=== PATIENT | male | born 2000 | race Caucasian/White ===

== ENCOUNTER 2019-12-23 18:52 | Emergency (ER) | payer OTHER ==
[~2019-12-23] VITALS: Ht 170.2 cm; Wt 68.0 kg
[2019-12-23 19:05] VITALS: BP 119/67
--- NOTE | 2019-12-23 19:05 | NUR ---
ED Nurse Note: Pt ambulated into ED from home CO suicidal ideation d/t hearing voices in his head which told him to slit his wrists. pt states that he has been hearing voices in his head x 2 days and finally felt as though he could no longer remain in control of his thoughts or actions. VSS no ss of distress noted. Pt behavior is suspicious and paranoid, guarded. Pt aao x 4, steady gait. ERMD at bedside
--- NOTE | 2019-12-23 19:05 | NUR ---
ED Nurse Note: Sitter at bedside. safety precautions in place. pt belongings placed in locker # 3
--- NOTE | 2019-12-23 19:20 | NUR ---
ED Nurse Note: IV access obtained, blood drawn and sent to lab; ua sent to lab
--- NOTE | 2019-12-23 19:28 | NUR ---
ED Nurse Note: All medications administered, pt tolerated well. no ss of distress noted.
[2019-12-23 19:48] LABS: BASOPHILS % (AUTO) 0.8 % (0.0-2.0); EOSINOPHILS % (AUTO) 0.5 % (0.0-3.0); HEMATOCRIT 45.8 % (42.0-52.0); HEMOGLOBIN 15.4 G/DL (14.2-18.0); LYMPHOCYTES % (AUTO) 33.7 % (20.0-45.0); MEAN CORPUSCULAR VOLUME 94 FL (80-99); MONOCYTES % (AUTO) 4.2 % (1.0-10.0); NEUTROPHILS % (AUTO) 60.8 % (45.0-75.0); PLATELET COUNT 305 K/UL (150-450); RED BLOOD COUNT 4.89 M/UL (4.70-6.10); RED CELL DISTRIBUTION WIDTH 11.7 % (11.6-14.8); WHITE BLOOD COUNT 6.9 K/UL (4.8-10.8)
[2019-12-23 19:51] LABS: ANION GAP 14 mmol/L (5-15); BLOOD UREA NITROGEN 13 mg/dL (7-18); CALCIUM 9.1 MG/DL (8.5-10.1); CARBON DIOXIDE 25 MMOL/L (21-32); CHLORIDE 105 MMOL/L (98-107); CREATININE 0.9 MG/DL (0.55-1.30); POTASSIUM 3.7 MMOL/L (3.5-5.1); SODIUM 144 MMOL/L (136-145)
[2019-12-23 19:55] LABS: ALANINE AMINOTRANSFERASE 29 U/L (12-78); ALBUMIN 4.9 G/DL (3.4-5.0); ALBUMIN/GLOBULIN RATIO 1.5 (1.0-2.7); ALKALINE PHOSPHATASE 99 U/L (46-116); ASPARTATE AMINO TRANSFERASE 24 U/L (15-37); BILIRUBIN,TOTAL 0.4 MG/DL (0.2-1.0)
--- NOTE | 2019-12-23 20:05 | NUR ---
ED Nurse Note: Pt resting in bed, sitter at bedside. safety precautions in place.
--- NOTE | 2019-12-23 20:24 | Emergency Room Report ---
History of Present Illness General Chief Complaint: Behavioral Complaint Source: Patient (Vu Blackburn) Present Illness HPI 19-year-old male with history of bipolar disorder which reports that he used to take Seroquel in the past here complaining of 3 days of suicidal ideation and wanting to cut his wrist. Has not completed his plan. Denies any suicidal ideation in the past. Reports that he has some alcohol yesterday. Denies all other drug use. Denies homicidal ideations. Reports that he does not remember last time that he took his Seroquel. Denies fever and chills, cough and congestion, recent travel. COVID-19 risk:Contact w/high r: No COVID-19 risk:Travel to affect: No Has patient experienced duncan: No (Vu Blackburn) Allergies: Coded Allergies: No Known Allergies (Unverified , 12/23/19) Patient History Past Medical History: see triage record Past Surgical History: none Pertinent Family History: none Immunizations: UTD Reviewed Nursing Documentation: PMH: Agreed; PSxH: Agreed (Vu Blackburn) Nursing Documentation-PMH Past Medical History: No Stated History History Of Psychiatric Problem: Yes - bi-polar (Vu Blackburn) Review of Systems All Other Systems: negative except mentioned in HPI (Vu Blackburn) Physical Exam Vital Signs Date Time Temp Pulse Resp B/P (MAP) Pulse Ox O2 Delivery O2 Flow Rate FiO2 12/23/19 18:55 98.2 86 16 119/67 (84) 98 12/23/19 19:05 Room Air Sp02 EP Interpretation: reviewed, normal General Appearance: no apparent distress, alert, GCS 15, non-toxic Head: normocephalic, atraumatic Eyes: bilateral eye normal inspection, bilateral eye PERRL ENT: hearing grossly normal, normal pharynx, no angioedema, normal voice Neck: full range of motion, supple/symm/no masses Respiratory: chest non-tender, lungs clear, normal breath sounds, no rhonchi, no wheezing, speaking full sentences Cardiovascular #1: regular rate, rhythm, no edema, no murmur, normal capillary refill Gastrointestinal: non tender, soft Genitourinary: no CVA tenderness Musculoskeletal: back normal Neurologic: alert, oriented Psychiatric: normal inspection, judgement/insight normal Suicide Risk Assessment: Suicidal Ideation: Yes Had intent to initiate attempt: Yes Pt's plan for suicide attempt: Yes Has means to complete attempt: Yes Skin: no rash Lymphatic: no adenopathy (Vu Blackburn) Medical Decision Making PA Attestation All diagnoses and treatment plans were reviewed and discussed with my supervising physician Dr. Alvarado (Vu Blackburn) Diagnostic Impression: Primary Impression: Suicidal ideation ER Course 19-year-old male with history of bipolar disorder which reports that he used to take Seroquel in the past here complaining of 3 days of suicidal ideation and wanting to cut his wrist. Has not completed his plan. Denies any suicidal ideation in the past. Reports that he has some alcohol yesterday. Denies all other drug use. Denies homicidal ideations. Reports that he does not remember last time that he took his Seroquel. Denies fever and chills, cough and congestion, recent travel. Ddx considered but are not limited to: generalized anxiety disorder, panic attack, depression with psycotic featurs, bipolar disorder, drug overdose Vital signs: are WNL, pt. is afebrile H&PE are most consistent with: Suicidal ideation ORDERS: Psychiatric order set ED INTERVENTIONS: Seroquel Patient is medically cleared I signed out the patient to Dr. Olivares at 9pm (Vu Blackburn) Last Vital Signs Date Time Temp Pulse Resp B/P (MAP) Pulse Ox O2 Delivery O2 Flow Rate FiO2 12/23/19 19:05 98.2 86 16 119/67 98 12/23/19 19:05 Room Air (Vu Blackburn) Disposition: XFER TO PSYCH HOSP/UNIT Condition: Stable Physician Consult: [facility], Dr. Branch (Susan Olivares M.D.) Referrals: [facility] (PCP) Vu Blackburn Dec 23, 2019 20:24 Susan Olivares M.D. Dec 24, 2019 02:43
--- NOTE | 2019-12-23 21:05 | NUR ---
ED Nurse Note: Pt resting in bed, sitter at bedside. safety precautions in place.
[2019-12-23 21:20] VITALS: BP 115/62
--- NOTE | 2019-12-23 22:05 | NUR ---
ED Nurse Note: Pt resting in bed, sitter at bedside. safety precautions in place.
--- NOTE | 2019-12-23 23:05 | NUR ---
ED Nurse Note: pt sleeping in bed. sitter at bedside, safety precautions in place.
[2019-12-23 23:15] VITALS: BP 110/67
--- NOTE | 2019-12-24 00:05 | NUR ---
ED Nurse Note: pt sleeping in bed. VSS no ss of distress noted. sitter at bedside, safety precautions in place
[2019-12-24 00:35] VITALS: BP 103/62
[2019-12-24 00:48] LABS: APPEARANCE,URINE CLEAR; BILIRUBIN, URINE NEGATIVE (NEGATIVE); COLOR,URINE PALE YELLOW; GLUCOSE, URINE (UA) NEGATIVE (NEGATIVE); KETONES,URINE NEGATIVE (NEGATIVE); LEUKOCYTE ESTERASE ,URINE NEGATIVE (NEGATIVE); NITRITE,URINE NEGATIVE (NEGATIVE); PH,URINE 6 (4.5-8.0); PROTEIN,URINE NEGATIVE (NEGATIVE); UROBILINOGEN,URINE NORMAL MG/DL (0.0-1.0)
--- NOTE | 2019-12-24 01:05 | NUR ---
ED Nurse Note: Pt sleeping in bed, VSS no ss of distress noted. Sitter at bedside safety precautions in place.
[2019-12-24 02:05] VITALS: BP 105/65
--- NOTE | 2019-12-24 02:05 | NUR ---
ED Nurse Note: Pt sleeping in bed, vSS no ss of distress noted. Sitter at bedside safety precautions in place.
[2019-12-24 02:41] VITALS: BP 105/65
--- NOTE | 2019-12-24 02:41 | NUR ---
ER DISCHARGE NOTE: Patient is cleared to be discharged to [facility] via [facility] per ERMD, pt is aox4, on room air, with stable vital signs. pt was given dc instructions, pt was able to verbalize understanding, pt id band and iv site removed without complications. pt is able to ambulate with steady gait. pt took all belongings. Report given to Anuja, charge nurse at facility.
== END 2019-12-24 02:41 ==
LOC: EMR 19:33
DX: R45.851 Suicidal ideations (principal); F31.9 Bipolar disorder, unspecified
CPT/HCPCS: 36415; 80053; 80307; 81003; 85025; G0480; G0481; Z7502; 99285

== ENCOUNTER 2020-02-08 00:39 | Emergency (ER) | payer OTHER ==
[~2020-02-08] VITALS: Ht 170.2 cm; Wt 70.3 kg
--- NOTE | 2020-02-08 00:45 | NUR ---
ED Nurse Note: PT WALKED IN FROM HOME C/O HEARING VOICES X4 DAYS. STATES ANXIETY AND NOT TAKING HIS PRESCRIBED SEROQUEL FOR 3 MONTHS DUE TO BAD DREAMS IT HAS BEEN CAUSING. VSS, NAD, DENIES SI, AAOX4, AMBULATORY.
[2020-02-08 00:52] VITALS: BP 136/61
[2020-02-08] MEDS ORDERED: ZYPREXA2.5 MG ORAL (00:54)
--- NOTE | 2020-02-08 00:54 | Emergency Room Report ---
History of Present Illness General Chief Complaint: Behavioral Complaint Source: Patient Present Illness HPI This a 19-year-old male with a psychiatric history. He presents with chief complaint of feeling anxious and suicidal. He has no particular plan. He said that he occasionally hears voices. He was here before he was sent to [place]. He said that he was on Seroquel in the past but it caused him to have very scary vivid dreams. He said the psychiatrist put him back on Seroquel but a lower dose. He said it did not help at all. He stopped that. He has been drinking alcohol try to help with anxiety. He has no particular plan. He denies any homicidal thought. Denies any fever chills but denies any nausea or vomiting. Denies any drug use other than marijuana and alcohol. Allergies: Coded Allergies: No Known Allergies (Unverified , 12/23/19) Patient History Past Medical History: see triage record, old chart reviewed Past Surgical History: none Family History: none Social History: other Immunizations: other Reviewed Nursing Documentation: PMH: Agreed; PSxH: Agreed Nursing Documentation-PMH History Of Psychiatric Problem: Yes - bipolar, anxiety Review of Systems ENT: Denies: sore throat Cardiovascular: Denies: chest pain, palpitations Gastrointestinal/Abdominal: Denies: nausea, vomiting, diarrhea Musculoskeletal: Denies: back problems Skin: Denies: rash Neurological: Denies: GUSMAN, seizures All Other Systems: negative except mentioned in HPI Physical Exam Vital Signs Date Time Temp Pulse Resp B/P (MAP) Pulse Ox O2 Delivery O2 Flow Rate FiO2 02/08/20 00:40 98.2 88 20 136/61 (86) 95 Room Air Vitals normal Sp02 EP Interpretation: reviewed, normal General Appearance: alert/responsive, no apparent distress, non-toxic Head: normocephalic, atraumatic Eyes: PERRL, EOMI ENT: oropharynx normal Neck: supple/symm/no masses Respiratory: effort normal, no rhonchi, no wheezing Cardiovascular: no murmur, gallop, rub Gastrointestinal: non-tender, no mass, non-distended, no rebound/guarding, normal bowel sounds Musculoskeletal: gait & station normal Neurologic: oriented x3, sensory intact, motor strength/tone normal Skin: no rash, normal palpation Medical Decision Making Diagnostic Impression: Primary Impression: Behavioral disorder Additional Impression: Suicidal thoughts ER Course Patient presents with behavioral disorder with anxiety and suicidal thoughts. He has no particular plan. Better after dose of Ativan here. We will switch him from Seroquel to Zyprexa. I see no criteria for 5150 at this moment in time. Patient said that he felt better now. Will discharge home. Last Vital Signs Date Time Temp Pulse Resp B/P (MAP) Pulse Ox O2 Delivery O2 Flow Rate FiO2 02/08/20 00:40 98.2 88 20 136/61 (86) 95 Room Air Status: improved Disposition: HOME, SELF-CARE Condition: Stable Scripts Olanzapine* (ZYPREXA*) 2.5 Mg Tablet 2.5 MG ORAL DAILY, #30 TAB 0 Refills Prov: Xavi Burns MD 02/08/20 Patient Instructions: Self-Destructive Behavior Additional Instructions: Follow-up with mental health/your psychiatrist in 7 days. Return if symptoms worsen. Xavi Burns MD February 08, 2020 00:54
[2020-02-08 01:00] VITALS: BP 136/61
[2020-02-08] MEDS ORDERED: LORazepam 1mg tab ORAL ONE (01:00)
--- NOTE | 2020-02-08 01:00 | NUR ---
ER DISCHARGE NOTE: Patient is cleared to be discharged per ERMD, pt is aox4, on room air, with stable vital signs. pt was given dc and prescription instructions, pt was able to verbalize understanding, pt id band removed without complications. pt is able to ambulate with steady gait. pt took all belongings.
== END 2020-02-08 01:00 | disposition home or self-care (01) ==
LOC: EMR 00:58
DX: R45.851 Suicidal ideations (principal); F41.9 Anxiety disorder, unspecified; F31.9 Bipolar disorder, unspecified
CPT/HCPCS: 99282

== ENCOUNTER 2020-05-30 23:43 | Emergency (ER) | payer OTHER ==
[~2020-05-30] VITALS: Ht 170.2 cm; Wt 74.8 kg
[~2020-05-30 23:43] MED LIST: ZYPREXA2.5 MG ORAL
[2020-05-31] VITALS (9 sets, daily range): BP systolic 122–134; BP diastolic 64–78
[2020-05-31] MEDS ORDERED: SEROQUEL200 MG ORAL (00:01)
[2020-05-31] MEDS ORDERED: LORazepam 1mg tab ORAL ONE ×2 (00:45→18:00)
--- NOTE | 2020-05-31 01:04 | Emergency Room Report ---
History of Present Illness General Chief Complaint: Behavioral Complaint Source: Patient (Taurus Harris M.D.) Present Illness HPI 19-year-old male with history of bipolar disorder and depression on Lexapro and Seroquel here with suicidal ideation. Patient says that he lives alone and has knives and has a plan to kill himself by cutting his wrists. He has done so in the past. He was recently at a psychiatric facility about 6 months ago. Says he has been compliant with his medications but says "they are not working and I still feel like killing myself." No homicidal ideation. No hallucinations. Denies drug use. Admits to drinking "a few beers tonight." Has been admitted to [place] in the past. He was here in the emergency department a few months ago and was complaining of suicidal thoughts and anxiety but felt better after Ativan. (Taurus Harris M.D.) Allergies: Coded Allergies: No Known Allergies (Unverified , 12/23/19) COVID-19 Screening Contact w/high risk pt: No Recent Travel to affected area: No Experienced COVID-19 symptoms?: No COVID-19 Testing performed ENGINEERING DIRECTOR: No (Taurus Harris M.D.) Nursing Documentation-H Past Medical History: No History, Except For (Taurus Harris M.D.) Review of Systems All Other Systems: negative except mentioned in HPI (Taurus Harris M.D.) Physical Exam Vital Signs Date Time Temp Pulse Resp B/P (MAP) Pulse Ox O2 Delivery O2 Flow Rate FiO2 05/30/20 23:54 98.4 83 14 128/64 (85) 98 Room Air Sp02 EP Interpretation: reviewed, normal General Appearance: no apparent distress, alert, GCS 15, non-toxic Head: normocephalic, atraumatic Eyes: bilateral eye normal inspection, bilateral eye PERRL ENT: hearing grossly normal, normal pharynx, no angioedema, normal voice Neck: full range of motion, supple/symm/no masses Respiratory: chest non-tender, lungs clear, normal breath sounds, speaking full sentences Cardiovascular #1: regular rate, rhythm, no edema Cardiovascular #2: 2+ carotid (R), 2+ carotid (L), 2+ radial (R), 2+ radial (L) , 2+ dorsalis pedis (R), 2+ dorsalis pedis (L) Gastrointestinal: normal bowel sounds, non tender, soft, non-distended, no guarding, no rebound Rectal: deferred Genitourinary: normal inspection, no CVA tenderness Musculoskeletal: back normal, normal range of motion, calf tenderness, gait/ station normal, non-tender Neurologic: alert, motor strength/tone normal, oriented x3, sensory intact, responsive, speech normal Psychiatric: judgement/insight normal, memory normal, mood/affect normal, no suicidal/homicidal ideation Lymphatic: no adenopathy (Taurus Harris M.D.) Medical Decision Making Diagnostic Impression: Primary Impression: Suicidal ideation ER Course 19 yo M here with suicidal ideation. The patient was extremely anxious on arrival and complaining of suicidal ideation with a plan to cut his wrists with knives that he has in his home. He was given ativan 2mg PO and said he felt less anxious but was still complaining of suicidal thoughts. UDS showed THC and was otherwise negative. He was medically cleared. Awaiting placement. Signed out to oncoming physician. Laboratory Tests Test 05/31/20 01:18 White Blood Count 8.0 K/UL (4.8-10.8) Red Blood Count 4.61 M/UL (4.70-6.10) L Hemoglobin 14.9 G/DL (14.2-18.0) Hematocrit 41.6 % (42.0-52.0) L Mean Corpuscular Volume 90 FL (80-99) Mean Corpuscular Hemoglobin 32.3 PG (27.0-31.0) H Mean Corpuscular Hemoglobin Concent 35.9 G/DL (32.0-36.0) Red Cell Distribution Width 10.8 % (11.6-14.8) L Platelet Count 273 K/UL (150-450) Mean Platelet Volume 7.1 FL (6.5-10.1) Neutrophils (%) (Auto) 57.4 % (45.0-75.0) Lymphocytes (%) (Auto) 32.4 % (20.0-45.0) Monocytes (%) (Auto) 7.4 % (1.0-10.0) Eosinophils (%) (Auto) 1.1 % (0.0-3.0) Basophils (%) (Auto) 1.7 % (0.0-2.0) Urine Color Pale yellow Urine Appearance Clear Urine pH 5 (4.5-8.0) Urine Specific [place] 1.015 (1.005-1.035) Urine Protein Negative (NEGATIVE) Urine Glucose (UA) Negative (NEGATIVE) Urine Ketones Negative (NEGATIVE) Urine Blood Negative (NEGATIVE) Urine Nitrite Negative (NEGATIVE) Urine Bilirubin Negative (NEGATIVE) Urine Urobilinogen Normal MG/DL (0.0-1.0) Urine Leukocyte Esterase Negative (NEGATIVE) Sodium Level 139 MMOL/L (136-145) Potassium Level 3.9 MMOL/L (3.5-5.1) Chloride Level 102 MMOL/L (98-107) Carbon Dioxide Level 24 MMOL/L (21-32) Anion Gap 13 mmol/L (5-15) Blood Urea Nitrogen 19 mg/dL (7-18) H Creatinine 1.1 MG/DL (0.55-1.30) Estimated Glomerular Filtration Rate > 60 mL/min (>60) Glucose Level 92 MG/DL (74-106) Calcium Level 9.6 MG/DL (8.5-10.1) Total Bilirubin 0.3 MG/DL (0.2-1.0) Aspartate Amino Transferase (AST) 21 U/L (15-37) Alanine Aminotransferase (ALT) 20 U/L (12-78) Alkaline Phosphatase 93 U/L (46-116) Total Protein 7.9 G/DL (6.4-8.2) Albumin 4.6 G/DL (3.4-5.0) Globulin 3.3 g/dL Albumin/Globulin Ratio 1.4 (1.0-2.7) Salicylates Level 7.6 ug/mL (2.8-20) Urine Opiates Screen Negative (NEGATIVE) Acetaminophen Level < 2 MCG/ML (10-30) L Urine Barbiturates Screen Negative (NEGATIVE) Phencyclidine (PCP) Screen Negative (NEGATIVE) Urine Amphetamines Screen Negative (NEGATIVE) Urine Benzodiazepines Screen Negative (NEGATIVE) Urine Cocaine Screen Negative (NEGATIVE) Urine Marijuana (THC) Screen Positive (NEGATIVE) H Serum Alcohol 69 mg/dL Microbiology Date/Time Source Procedure Growth Status 05/31/20 01:18 Nasopharynx SARS-CoV-2 RdRp Gene Assay - Final Complete (Taurus Harris M.D.) ER Course Medically clear for psychiatric evaluation. Patient resting throughout my shift. Stable for transfer. Laboratory Tests Test 05/31/20 01:18 White Blood Count 8.0 K/UL (4.8-10.8) Red Blood Count 4.61 M/UL (4.70-6.10) L Hemoglobin 14.9 G/DL (14.2-18.0) Hematocrit 41.6 % (42.0-52.0) L Mean Corpuscular Volume 90 FL (80-99) Mean Corpuscular Hemoglobin 32.3 PG (27.0-31.0) H Mean Corpuscular Hemoglobin Concent 35.9 G/DL (32.0-36.0) Red Cell Distribution Width 10.8 % (11.6-14.8) L Platelet Count 273 K/UL (150-450) Mean Platelet Volume 7.1 FL (6.5-10.1) Neutrophils (%) (Auto) 57.4 % (45.0-75.0) Lymphocytes (%) (Auto) 32.4 % (20.0-45.0) Monocytes (%) (Auto) 7.4 % (1.0-10.0) Eosinophils (%) (Auto) 1.1 % (0.0-3.0) Basophils (%) (Auto) 1.7 % (0.0-2.0) Urine Color Pale yellow Urine Appearance Clear Urine pH 5 (4.5-8.0) Urine Specific [place] 1.015 (1.005-1.035) Urine Protein Negative (NEGATIVE) Urine Glucose (UA) Negative (NEGATIVE) Urine Ketones Negative (NEGATIVE) Urine Blood Negative (NEGATIVE) Urine Nitrite Negative (NEGATIVE) Urine Bilirubin Negative (NEGATIVE) Urine Urobilinogen Normal MG/DL (0.0-1.0) Urine Leukocyte Esterase Negative (NEGATIVE) Sodium Level 139 MMOL/L (136-145) Potassium Level 3.9 MMOL/L (3.5-5.1) Chloride Level 102 MMOL/L (98-107) Carbon Dioxide Level 24 MMOL/L (21-32) Anion Gap 13 mmol/L (5-15) Blood Urea Nitrogen 19 mg/dL (7-18) H Creatinine 1.1 MG/DL (0.55-1.30) Estimated Glomerular Filtration Rate > 60 mL/min (>60) Glucose Level 92 MG/DL (74-106) Calcium Level 9.6 MG/DL (8.5-10.1) Total Bilirubin 0.3 MG/DL (0.2-1.0) Aspartate Amino Transferase (AST) 21 U/L (15-37) Alanine Aminotransferase (ALT) 20 U/L (12-78) Alkaline Phosphatase 93 U/L (46-116) Total Protein 7.9 G/DL (6.4-8.2) Albumin 4.6 G/DL (3.4-5.0) Globulin 3.3 g/dL Albumin/Globulin Ratio 1.4 (1.0-2.7) Salicylates Level 7.6 ug/mL (2.8-20) Urine Opiates Screen Negative (NEGATIVE) Acetaminophen Level < 2 MCG/ML (10-30) L Urine Barbiturates Screen Negative (NEGATIVE) Phencyclidine (PCP) Screen Negative (NEGATIVE) Urine Amphetamines Screen Negative (NEGATIVE) Urine Benzodiazepines Screen Negative (NEGATIVE) Urine Cocaine Screen Negative (NEGATIVE) Urine Marijuana (THC) Screen Positive (NEGATIVE) H Serum Alcohol 69 mg/dL Microbiology Date/Time Source Procedure Growth Status 05/31/20 01:18 Nasopharynx SARS-CoV-2 RdRp Gene Assay - Final Complete (Drake Alvarado MD) ER Course Labs reviewd. UDS + Marijuana. COVID negative. All other labs WNL. Pt is medically cleared. After serial neurologic exams in the emergency department, the patient remains clinically sober. They have no focal neurologic deficits. The patients presentation seems to be consistent with suicidal ideation, without any complications such as suicide attempt or overdose. The patient appears to be stable for transfer to a psychiatric facility for further psychiatric evaluation and care, without any obvious medical etiology for their symptoms. Patient was accepted to [facility]. 1700: According to nurse, [place] is now stating that they do not have the capacity to accept patient due to an emergency on their end. Patient continues to be medically clear. Ativan 2mg PO given for agitation . 0: Patient now up and out of bed agitated. Gave haldol, benadryl, ativan for sedation. 0: On re-evaluation patient is now calm and cooperative stating "Im sorry I was like that Ill cooperate now. When is my transfer coming?" Critical Care Statement Organ systems at risk include: psych, circulatory Critical care performed for 45 minutes. Time is exclusive of separately billable procedures. Time includes: direct patient care, continuous monitoring and multiple patient reassessment, coordination of patient care, review of patient's medical records , medical consultation, family consultation regarding treatment decisions and documentation of patient care. (Steph Cervantes D.O.) Last Vital Signs Date Time Temp Pulse Resp B/P (MAP) Pulse Ox O2 Delivery O2 Flow Rate FiO2 05/31/20 00:47 83 14 128/64 98 05/30/20 23:54 98.4 Room Air (Taurus Harris M.D.) Last Vital Signs Date Time Temp Pulse Resp B/P (MAP) Pulse Ox O2 Delivery O2 Flow Rate FiO2 05/31/20 15:44 98.4 76 18 122/68 100 Room Air Status: improved (Drake Alvarado MD) Disposition: PSYCH HOSP/UNIT - [facility] Condition: Stable Referrals: [facility] (PCP) Taurus Harris M.D. May 31, 2020 01:04 Drake Alvarado MD May 31, 2020 07:52 Steph Cervantes D.O. May 31, 2020 15:18
--- NOTE | 2020-05-31 01:25 | NUR ---
Nurse Note: Pt walked in c/o self harming thoughts for few days. Pt stated personal stressors are causing him to feel overwhelmed, depressed and have the urge to cut his wrists. Pt admitted to drinking ETOH and smoking THC for emotional support. Pt is showing regressing symptoms such as bed wetting and taking in a child like tone. Pt hx depression, bipolar. RT hand 22 gauge IV estbalished, blood drawn and sent to lab. Urine collected and sent to lab. All safety measures met; will continue to montior. Addendum: 05/31/20 at 0228 by [email or web address] Nurse Note: Pt stated he is complient with medication but "it does not help me anymore and I think I need stronger doses".
[2020-05-31 01:53] LABS: BASOPHILS % (AUTO) 1.7 % (0.0-2.0); EOSINOPHILS % (AUTO) 1.1 % (0.0-3.0); HEMATOCRIT 41.6 % (42.0-52.0); HEMOGLOBIN 14.9 G/DL (14.2-18.0); LYMPHOCYTES % (AUTO) 32.4 % (20.0-45.0); MEAN CORPUSCULAR VOLUME 90 FL (80-99); MONOCYTES % (AUTO) 7.4 % (1.0-10.0); NEUTROPHILS % (AUTO) 57.4 % (45.0-75.0); PLATELET COUNT 273 K/UL (150-450); RED BLOOD COUNT 4.61 M/UL (4.70-6.10); RED CELL DISTRIBUTION WIDTH 10.8 % (11.6-14.8)
[2020-05-31 01:56] LABS: ANION GAP 13 mmol/L (5-15); BLOOD UREA NITROGEN 19 mg/dL (7-18); CALCIUM 9.6 MG/DL (8.5-10.1); CARBON DIOXIDE 24 MMOL/L (21-32); CHLORIDE 102 MMOL/L (98-107); CREATININE 1.1 MG/DL (0.55-1.30); POTASSIUM 3.9 MMOL/L (3.5-5.1); SODIUM 139 MMOL/L (136-145)
--- NOTE | 2020-05-31 02:00 | NUR ---
Nurse Note: Rapid nasophryngeal covid swab collected and sent to lab. Belongings taken to locker 3. Pt appears calm. All safety measures met; will continue to montior.
[2020-05-31 02:02] LABS: ALANINE AMINOTRANSFERASE 20 U/L (12-78); ALBUMIN 4.6 G/DL (3.4-5.0); ALBUMIN/GLOBULIN RATIO 1.4 (1.0-2.7); ALKALINE PHOSPHATASE 93 U/L (46-116); ASPARTATE AMINO TRANSFERASE 21 U/L (15-37); BILIRUBIN,TOTAL 0.3 MG/DL (0.2-1.0)
--- NOTE | 2020-05-31 04:03 | NUR ---
Nurse Note: Pt asleep, no signs of acute distress. Pt remains comfortable; denies pain, denies self harm at this time. All safety measures met; will continue to montior.
[2020-05-31 06:05] LABS: APPEARANCE,URINE CLEAR; BILIRUBIN, URINE NEGATIVE (NEGATIVE); COLOR,URINE PALE YELLOW; GLUCOSE, URINE (UA) NEGATIVE (NEGATIVE); KETONES,URINE NEGATIVE (NEGATIVE); LEUKOCYTE ESTERASE ,URINE NEGATIVE (NEGATIVE); NITRITE,URINE NEGATIVE (NEGATIVE); PH,URINE 5 (4.5-8.0); PROTEIN,URINE NEGATIVE (NEGATIVE); UROBILINOGEN,URINE NORMAL MG/DL (0.0-1.0)
--- NOTE | 2020-05-31 06:30 | NUR ---
Nurse Note: Pt cleaned and new bed linens provided, breakfast meal ordered. Pt is medically cleared per ERMD. All safety measures met; will continue to montior.
--- NOTE | 2020-05-31 07:15 | NUR ---
Nurse Note: Report given to SHILA Dominguez for continutiy of care. Pt pending placement.
--- NOTE | 2020-05-31 07:34 | NUR ---
ED Nurse Note: Received report from SIHLA Dominguez for continuity of care. Pt on bed, awake and quiet. Safety measures in placed.
--- NOTE | 2020-05-31 08:28 | NUR ---
ED Nurse Note: Pt repetitively verbalized, "I want to hurt myself, I want to hurt myself." Safety measures in placed, sitter at bedside.
--- NOTE | 2020-05-31 12:00 | NUR ---
ED Nurse Note: Pt on bed, sleeping, no acute distress noted.
--- NOTE | 2020-05-31 15:43 | NUR ---
ED Nurse Note: Pt requested for his IV access to be out, RN removed IV site without any complications.
--- NOTE | 2020-05-31 16:10 | NUR ---
ED Nurse Note: called [facility] for report, spoke with Charles. Per Charles, their facility cannot have new patients right now; notified charge nurse.
--- NOTE | 2020-05-31 19:21 | NUR ---
ED Nurse Note: hand off given to Taylor FUCHS.
--- NOTE | 2020-05-31 20:12 | NUR ---
Nurse Note: Pt in bed; resting, calm. Pt moaning, controlled with attention. Pt redirectable; no signs of DTS and DTO at this time. RN close to pt room. All safety measures met; will continue to montior.
--- NOTE | 2020-05-31 21:12 | NUR ---
Nurse Note: Report given to Mac at [facility] for continuity of care. Pt VSS, no signs of distress; all safety measures met.
[2020-05-31] MEDS ORDERED: ZyPREXA Zydis 10mg tab ORAL ONE (22:30)
[2020-05-31] MEDS ORDERED: Haloperidol 5mg/ml Inj ONE (22:42)
[2020-05-31] MEDS ORDERED: Haloperidol Decanoate (Long Acting) 50mg Inj IM ONE ×2 (22:45)
[2020-05-31] MEDS ORDERED: DiphenhydrAMINE 50mg/ml Inj IM ONE (22:45)
[2020-05-31] MEDS ORDERED: LORazepam Inj 2mg/ml 1ml IM ONE (22:45)
--- NOTE | 2020-05-31 22:45 | NUR ---
Nurse Note: Pt acting out; wandering halls and verbally agresstive. Pt was repeatly reminded to stay in room; pt non complient. Pt yelling; MD aware and was given oral zyprexa. Pt spit medication out and started hitting the medical equiment and throwing stuff around the room. ERMD made aware and IM medication ordered. Order clarifed with MD about haldol decanonate 50mg inj; per ERMD, incorrect order and was given verbal order for haldol 5mg IM once. Pt placed on portable cardiac montior.
--- NOTE | 2020-05-31 22:45 | NUR ---
Note undone in EDM - 05/31/20 at 2352 by [email or web address] N 50mg injurse Note: Pt acting out; wandering halls and verbally agresstive. Pt was repeatly reminded to stay in room; pt non complient. Pt yelling; aware and was given oral zyprexa. Pt spit medication out and started hitting the medical equiment and throwing stuff around the room. ADE made aware and IM medication ordered. Order clarifed with about haldol decanonate; per ADE,
--- NOTE | 2020-05-31 23:54 | NUR ---
Nurse Note: Pt appears calm, no signs of acute aggitation. Pt chest rise and fall noted. All safety measures met; will continue to montior.
--- NOTE | 2020-06-01 00:35 | NUR ---
Nurse Note: Spoke with Mac from [facility], updated on pt condition. Mac is aware of most recent agitation episode. Mac aware of delayed transportation. Pt calm, asleep, VSS. All safety measures met; will continue to montior.
--- NOTE | 2020-06-01 01:10 | NUR ---
Nurse Note: Report given to [facility]; pt ready for transport. VSS. Belongings given to [facility].
[2020-06-01 01:11] VITALS: BP 101/70
== END 2020-06-01 01:10 ==
LOC: EMR 05-31 00:42
DX: R45.851 Suicidal ideations (principal); F31.9 Bipolar disorder, unspecified; F32.9 Major depressive disorder, single episode, unspecified; Z79.899 Other long term (current) drug therapy
CPT/HCPCS: 36415; 80053; 80307; 81003; 85025; 96372; G0480; G0481; J1200; J1630; J1631; U0002; Z7502; 99284

== ENCOUNTER 2020-09-09 15:32 | Emergency (ER) | payer OTHER ==
[~2020-09-09] VITALS: Ht 170.2 cm; Wt 72.6 kg
[~2020-09-09 15:32] MED LIST changes: +SEROQUEL200 MG ORAL
[2020-09-09 15:49] VITALS: BP 129/74
--- NOTE | 2020-09-09 17:46 | Emergency Room Report ---
History of Present Illness General Chief Complaint: Behavioral Complaint Source: Patient Present Illness HPI 19-year-old male with history of bipolar depressive/anxiety type presents to the emergency department complaining of increased depression and thoughts of "cutting". Patient reports turmoil with his family at home. Patient states he is been a part of the [employer] program. Patient is reporting difficulty with contacting his psychiatric doctor. 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 He states he has been taking Seroquel for almost 6 months and reports no relief of his symptoms. Patient reports he only feels sedated and increased appetite. Patient reports that he attempted to hurt himself in the past by cutting his legs. He denies HI. He denies any drug use. Pt. reports 2.5mg Zyprexa daily. He states he was better on higher dose in the past. Pt. also reports having been on abilify in his adolescence. Patient does report cigarette smoking. He denies cough, fevers or chills. No other aggravating or relieving factors at this time. He reports he has had several voluntary psychiatric hospitalizations in the past. He denies pain at this time. 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 COVID-19 Screening: Negative COVID-19 COVID-19 Testing Source: few months ago @ [facility] Patient History Past Medical History: see triage record, psych hx - bipolar Past Surgical History: none Pertinent Family History: none Social History: Reports: smoking Reviewed Nursing Documentation: PMH: Agreed; PSxH: Agreed Nursing Documentation-PMH Past Medical History: No History, Except For Review of Systems All Other Systems: negative except mentioned in HPI Physical Exam Vital Signs Date Time Temp Pulse Resp B/P (MAP) Pulse Ox O2 Delivery O2 Flow Rate FiO2 09/09/20 15:40 98.8 94 20 123/69 (87) 93 09/09/20 15:49 Room Air Sp02 EP Interpretation: reviewed, normal General Appearance: no apparent distress, alert, GCS 15, non-toxic Head: normocephalic, atraumatic Eyes: bilateral eye normal inspection, bilateral eye PERRL ENT: hearing grossly normal, normal voice Neck: full range of motion Respiratory: chest non-tender, lungs clear, normal breath sounds, no wheezing, speaking full sentences Cardiovascular #1: regular rate, rhythm, normal capillary refill Gastrointestinal: non tender, soft Musculoskeletal: back normal, normal range of motion, gait/station normal, non- tender Neurologic: alert, motor strength/tone normal, oriented x3, sensory intact, responsive, speech normal Psychiatric: judgement/insight normal, memory normal, anxious - Pt. is pacing with occasional pressured speech. He is very talkative however, No hallucinations. Skin: no rash, normal color, other - NO obvious signs of self harm. Medical Decision Making PA Attestation Dr. Nelson is my supervising Physician whom patient management has been discussed with. Diagnostic Impression: Primary Impression: Depressed bipolar affective disorder Qualified Codes: F31.31 - Bipolar disorder, current episode depressed, mild ER Course 19-year-old male with history of bipolar depressive/anxiety type presents to the emergency department complaining of increased depression and thoughts of "cutting". Patient reports turmoil with his family at home. Patient states he is been a part of the [employer] program. Patient is reporting d ifficulty with contacting his psychiatric doctor. 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 He states he has been taking Seroquel for almost 6 months and reports no relief of his symptoms. Patient reports he only feels sedated and increased appetite. Patient reports that he attempted to hurt himself in the past by cutting his legs. He denies HI. He denies any drug use. Pt. reports 2.5mg Zyprexa daily. He states he was better on higher dose in the past. Pt. also reports having been on abilify in his adolescence. Patient does report cigarette smoking. He denies cough, fevers or chills. No other aggravating or relieving factors at this time. He reports he has had several voluntary psychiatric hospitalizations in the past. He denies pain at this time. Pt is hyperactive, and has a very anxious and restless affect. Ddx considered but are not limited to OD, SI/HI, psychosis, UTI, intoxication Vital signs: are WNL, pt. is afebrile H&PE are most consistent with behavioral/mental health issue ORDERS: -CBC, CMP: Unremarkable -UA: negative for infection see results attached. -UDS: Positive for THC -Salicylates and Acetaminophen - no acute intoxication. ED INTERVENTIONS: - 5mg Zyprexa PO After zyprexa pt. is calmer, no longer pacing, and reports improvement in symptoms. He denies plans to hurt himself. He reports he is not having thoughts of cutting at this time. Pt. reports he feels much better and wants to continue to attempt to follow up with his psychiatrist and briefcase sewer. Pt. reports if he is unable to and has return of his symptoms that he will return promptly to the ED. Pt. is reasonable and participates in the development of treatment plan and outpatient follow up plan. DISPOSITION: Pt. d/c home with rx for zyprexa 5mg, Given strict ED return precautions. Labs Test 09/09/20 18:00 09/09/20 18:19 White Blood Count 7.9 K/UL (4.8-10.8) Red Blood Count 4.95 M/UL (4.70-6.10) Hemoglobin 16.0 G/DL (14.2-18.0) Hematocrit 45.9 % (42.0-52.0) Mean Corpuscular Volume 93 FL (80-99) Mean Corpuscular Hemoglobin 32.2 PG (27.0-31.0) Mean Corpuscular Hemoglobin Concent 34.8 G/DL (32.0-36.0) Red Cell Distribution Width 11.6 % (11.6-14.8) Platelet Count 266 K/UL (150-450) Mean Platelet Volume 8.1 FL (6.5-10.1) Neutrophils (%) (Auto) 65.6 % (45.0-75.0) Lymphocytes (%) (Auto) 25.7 % (20.0-45.0) Monocytes (%) (Auto) 6.4 % (1.0-10.0) Eosinophils (%) (Auto) 0.9 % (0.0-3.0) Basophils (%) (Auto) 1.3 % (0.0-2.0) Urine Opiates Screen Negative (NEGATIVE) Urine Barbiturates Screen Negative (NEGATIVE) Phencyclidine (PCP) Screen Negative (NEGATIVE) Urine Amphetamines Screen Negative (NEGATIVE) Urine Benzodiazepines Screen Negative (NEGATIVE) Urine Cocaine Screen Negative (NEGATIVE) Urine Marijuana (THC) Screen Positive (NEGATIVE) Sodium Level 141 MMOL/L (136-145) Potassium Level 3.9 MMOL/L (3.5-5.1) Chloride Level 105 MMOL/L (98-107) Carbon Dioxide Level 28 MMOL/L (21-32) Anion Gap 8 mmol/L (5-15) Blood Urea Nitrogen 13 mg/dL (7-18) Creatinine 1.1 MG/DL (0.55-1.30) Estimat Glomerular Filtration Rate > 60 mL/min (>60) Glucose Level 78 MG/DL (74-106) Calcium Level 9.2 MG/DL (8.5-10.1) Total Bilirubin 0.3 MG/DL (0.2-1.0) Aspartate Amino Transf (AST/SGOT) 22 U/L (15-37) Alanine Aminotransferase (ALT/SGPT) 30 U/L (12-78) Alkaline Phosphatase 102 U/L (46-116) Total Protein 8.3 G/DL (6.4-8.2) Albumin 4.7 G/DL (3.4-5.0) Globulin 3.6 g/dL Albumin/Globulin Ratio 1.3 (1.0-2.7) Salicylates Level 5.1 ug/mL (2.8-20) Acetaminophen Level < 2 MCG/ML (10-30) Serum Alcohol 10 mg/dL Last Vital Signs Date Time Temp Pulse Resp B/P (MAP) Pulse Ox O2 Delivery O2 Flow Rate FiO2 09/09/20 15:49 98.6 91 20 129/74 94 Room Air Status: improved Disposition: HOME, SELF-CARE Condition: Stable Scripts Olanzapine* (ZYPREXA*) 5 Mg Tablet 5 MG ORAL DAILY for 7 Days, #7 TAB Prov: Chaya Campos 09/09/20 [facility] ([facility]P) Patient Instructions: Bipolar Disorder Additional Instructions: Take medications as directed. Follow up with Your Mental Health Specialist/ Psychiatrist in 3 days, even if your symptoms have resolved. Return sooner to ED if new symptoms occur, or current symptoms become worse. - Please note that this Emergency Department Report was dictated using View the [employer]acep[employer] mixer machine technology software, occasionally this can lead to erroneous entry secondary to interpretation by the dictation equipment. Chaya Campos Sep 09, 2020 17:46
[2020-09-09 18:44] LABS: BASOPHILS % (AUTO) 1.3 % (0.0-2.0); EOSINOPHILS % (AUTO) 0.9 % (0.0-3.0); HEMATOCRIT 45.9 % (42.0-52.0); LYMPHOCYTES % (AUTO) 25.7 % (20.0-45.0); MEAN CORPUSCULAR VOLUME 93 FL (80-99); MONOCYTES % (AUTO) 6.4 % (1.0-10.0); NEUTROPHILS % (AUTO) 65.6 % (45.0-75.0); PLATELET COUNT 266 K/UL (150-450); RED BLOOD COUNT 4.95 M/UL (4.70-6.10); RED CELL DISTRIBUTION WIDTH 11.6 % (11.6-14.8); WHITE BLOOD COUNT 7.9 K/UL (4.8-10.8)
[2020-09-09 18:52] LABS: ANION GAP 8 mmol/L (5-15); BLOOD UREA NITROGEN 13 mg/dL (7-18); CALCIUM 9.2 MG/DL (8.5-10.1); CARBON DIOXIDE 28 MMOL/L (21-32); CHLORIDE 105 MMOL/L (98-107); CREATININE 1.1 MG/DL (0.55-1.30); POTASSIUM 3.9 MMOL/L (3.5-5.1); SODIUM 141 MMOL/L (136-145)
[2020-09-09 18:56] LABS: ALANINE AMINOTRANSFERASE 30 U/L (12-78); ALBUMIN 4.7 G/DL (3.4-5.0); ALBUMIN/GLOBULIN RATIO 1.3 (1.0-2.7); ALKALINE PHOSPHATASE 102 U/L (46-116); ASPARTATE AMINO TRANSFERASE 22 U/L (15-37); BILIRUBIN,TOTAL 0.3 MG/DL (0.2-1.0)
[2020-09-09] MEDS ORDERED: ZYPREXA5 MG ORAL (19:13)
[2020-09-09 19:40] VITALS: BP 125/74
== END 2020-09-09 19:40 | disposition home or self-care (01) ==
LOC: EMR 16:09
DX: F31.31 Bipolar disorder, current episode depressed, mild (principal); Z79.899 Other long term (current) drug therapy
CPT/HCPCS: 36415; 80053; 80307; 85025; G0480; G0481; Z7502; 99284

== ENCOUNTER 2020-10-03 00:18 | Emergency (ER) | payer OTHER ==
[~2020-10-03 00:18] MED LIST changes: +ZYPREXA5 MG ORAL
--- NOTE | 2020-10-03 00:48 | NUR ---
ED Nurse Note: pt not in waiting room
--- NOTE | 2020-10-03 01:02 | Emergency Room Report ---
History of Present Illness General Chief Complaint: To Be Triaged Present Illness HPI Is a 20-year-old male with a history of bipolar. He checked in with behavioral complaint. When the triage nurse call for him he was not in the waiting room anymore. I did not get to see this patient. He is on the medical records, he usually presents with hearing voices and stating that his Seroquel is not working. Again I did not get to see this patient. Allergies: Coded Allergies: No Known Allergies (Unverified , 12/23/19) COVID-19 Screening COVID-19 risk:Contact w/high r: No COVID-19 risk:Travel to affect: No Has patient experienced duncan: No Patient History Past Medical History: see triage record, old chart reviewed Past Surgical History: none Family History: none Social History: tobacco use Immunizations: other Reviewed Nursing Documentation: PMH: Agreed; PSxH: Agreed Medical Decision Making Diagnostic Impression: Primary Impression: Patient left without being seen Status: unchanged Disposition: LEFT W/OUT BEING SEEN Condition: Stable Xavi Burns MD Oct 03, 2020 01:02
== END 2020-10-03 00:48 | disposition left against medical advice (07) ==
LOC: EMR 00:48
DX: R46.89 Other symptoms and signs involving appearance and behavior (principal); Z72.0 Tobacco use; Z53.21 Procedure and treatment not carried out due to patient leaving prior to being seen by health care provider

== ENCOUNTER 2020-11-04 13:13 | Emergency (ER) | payer OTHER ==
[~2020-11-04] VITALS: Ht 170.2 cm; Wt 72.6 kg
--- NOTE | 2020-11-04 13:39 | NUR ---
ED Nurse Note: PT WALKED INTO ED FOR ANXIETY AND DEPRESSION FOR MONTHS. PT IS ALERT &OX4, AMBULATORY. HE STATES HE HASNT BEEN ABLE TO SEE PSYCH DOCTOR DUE TO COVID CLOSURE. HE STATES HE TAKES SEROQUEL.
[2020-11-04 13:41] VITALS: BP 122/76
[2020-11-04] MEDS ORDERED: ZyPREXA Zydis 5mg tab ORAL ONE (13:45)
--- NOTE | 2020-11-04 14:39 | Emergency Room Report ---
History of Present Illness General Chief Complaint: Behavioral Complaint Source: Patient Present Illness HPI 20-year-old male presents to the emergency department complaining of exacerbation of his bipolar/depressive disorder he states that he has been running low on his medication and has been trying to make what he has last until he can receive a refill. Patient reports that he does follow-up regularly with televisits with his doctor however being 3 months in his doctor is reporting in person visit for medication refill and due to COVID-19 and other obstacles patient is having difficulty with receiving his medications in a timely manner and is therefore reporting that he has been underdosed. He denies SI or HI at this time. He denies manic episodes he denies hallucinations or increased paranoia. Patient denies PSAs. He reports that he was a previous smoker in the past but no longer smokes. He denies illicit drug use he denies alcohol use. He denies pain at this time. Denies CP, SOB, palpitations, GUSMAN or Syncope. Pt. denies heart or liver conditions. He reports familial hx of dm2 and high cholesterol. Allergies: Coded Allergies: No Known Allergies (Unverified , 12/23/19) COVID-19 Screening Contact w/high risk pt: No Recent Travel to affected area: No Experienced COVID-19 symptoms?: No COVID-19 Testing performed COMMUNITY ARTS OFFICER: No Patient History Past Medical History: see triage record Past Surgical History: none Pertinent Family History: none Reviewed Nursing Documentation: PMH: Agreed; PSxH: Agreed Nursing Documentation-PMH Past Medical History: No History, Except For Hx Neurological Problems: Yes - ANXIETY, DEPRESSION, BIPOLAR Review of Systems All Other Systems: negative except mentioned in HPI Physical Exam Vital Signs Date Time Temp Pulse Resp B/P (MAP) Pulse Ox O2 Delivery O2 Flow Rate FiO2 11/04/20 13:35 98.4 75 20 117/72 (87) 95 Room Air 11/04/20 13:41 99 Sp02 EP Interpretation: reviewed, normal General Appearance: no apparent distress, alert, GCS 15, non-toxic Head: normocephalic, atraumatic Eyes: bilateral eye normal inspection, bilateral eye PERRL ENT: hearing grossly normal, normal voice Neck: full range of motion Respiratory: chest non-tender, lungs clear, normal breath sounds, no respiratory distress, no accessory muscle use, no wheezing, speaking full sentences Cardiovascular #1: regular rate, rhythm Gastrointestinal: normal bowel sounds, non tender, soft Musculoskeletal: back normal, normal range of motion, gait/station normal, non- tender Neurologic: alert, motor strength/tone normal, oriented x3, sensory intact, responsive, speech normal Psychiatric: judgement/insight normal, memory normal, mood/affect normal, no suicidal/homicidal ideation Skin: normal color, warm/dry Lymphatic: no adenopathy Medical Decision Making PA Attestation Dr. Roman is my supervising Physician whom patient management has been discussed with. Diagnostic Impression: Primary Impression: Medication refill ER Course 20-year-old male presents to the emergency department complaining of exacerbation of his bipolar/depressive disorder he states that he has been running low on his medication and has been trying to make what he has last until he can receive a refill. Patient reports that he does follow-up regularly with televisits with his doctor however being 3 months in his doctor is reporting in person visit for medication refill and due to COVID-19 and other obstacles patient is having difficulty with receiving his medications in a timely manner and is therefore reporting that he has been underdosed. He denies SI or HI at this time. He denies manic episodes he denies hallucinations or increased paranoia. Patient denies PSAs. He reports that he was a previous smoker in the past but no longer smokes. He denies illicit drug use he denies alcohol use. He denies pain at this time. Denies CP, SOB, palpitations, GUSMAN or Syncope. Pt. denies heart or liver conditions. He reports familial hx of dm2 and high cholesterol. Ddx considered but are not limited to: SI/HI, depression, Bipolar, follow up non compliance, drug seeking, OD, just to name a few. Vital signs: are WNL, pt. is afebrile. H&PE are most consistent with need for medication refill. At this time patient does not demonstrate being a danger to himself or others. He is alert and oriented and appears to be active in his medical care and concerned about his m edication management with improper ability to follow-up/receive refills in a timely manner. ORDERS: none required at this time, the diagnosis is clinical ED INTERVENTIONS: -5mg Zyprexa PO -I do not identify an emergent condition at this time. With current presentation, pt. is stable for close outpatient follow up and conservative treatment. D/w pt. to return promptly to ED with worsening or new symptoms.- Pt. verbalizes' understanding and agreement with proposed treatment plan. DISCHARGE: At this time pt. is stable for d/c to home. Will provide printed patient care instructions, and any necessary prescriptions. Care plan and follow up instructions have been discussed with the patient prior to discharge. Last Vital Signs Date Time Temp Pulse Resp B/P (MAP) Pulse Ox O2 Delivery O2 Flow Rate FiO2 11/04/20 13:41 79 18 Room Air 99 11/04/20 13:41 98.4 122/76 99 Disposition: HOME, SELF-CARE Condition: Stable Scripts Olanzapine* (ZYPREXA*) 5 Mg Tablet 5 MG ORAL DAILY for 30 Days, #30 TAB Prov: Chaya Campos 11/04/20 [facility] ([facility]P) Patient Instructions: Medicine Refill at the Emergency Department Additional Instructions: Take medications as directed. Follow up with a Mental Health Specialist/ Psychiatrist in 3 days, even if your symptoms have resolved. --Please review [facility] resource information provided Return sooner to ED if new symptoms occur, or current symptoms become worse. - Please note that this Emergency Department Report was dictated using [employer] gun parts technology software, occasionally this can lead to erroneous entry secondary to interpretation by the dictation equipment. Chaya Campos Nov 04, 2020 14:39
[2020-11-04] MEDS ORDERED: ZYPREXA5 MG ORAL (14:40)
--- NOTE | 2020-11-04 14:44 | NUR ---
ER DISCHARGE NOTE: Patient is cleared to be discharged per ERMD, pt is aox4, on room air, with stable vital signs. pt was given dc and prescription instructions, pt was able to verbalize understanding, pt id band removed. pt is able to ambulate with steady gait. pt took all belongings. Pt educated regarding zyprexa.
[2020-11-04 14:45] VITALS: BP 127/74
== END 2020-11-04 14:47 | disposition home or self-care (01) ==
LOC: EMR 14:03
DX: Z76.0 Encounter for issue of repeat prescription (principal); F33.9 Major depressive disorder, recurrent, unspecified; Z83.3 Family history of diabetes mellitus
CPT/HCPCS: 99282

== ENCOUNTER 2020-11-13 13:43 | Emergency (ER) | payer OTHER ==
[~2020-11-13] VITALS: Ht 170.2 cm; Wt 72.6 kg
--- NOTE | 2020-11-13 14:05 | NUR ---
ED Nurse Note:pt states he has been having suicidal thoughts "creep" into his head intermittently with no plan. says those thoughts come in to his head. pt stated he came here to get medication about a week ago and has been taking that med for the past 6 days. doesn't feel like it is working at all. pt denies wanting to hurt himself or others.
--- NOTE | 2020-11-13 14:11 | Emergency Room Report ---
History of Present Illness General Chief Complaint: Behavioral Complaint Source: Patient Present Illness HPI Disclaimer: Please note that this report is being documented using [employer] technology. This can lead to erroneous entry secondary to incorrect interpretation by the dictating instrument. HPI: 20-year-old male history of bipolar disorder presents for feelings of depression. Patient has been taking Zyprexa for the past week since his last ER visit for similar complaints. He states he has been having difficulty seeing his psychiatrist in [place] as his psychiatrist contracted COVID-19. Patient does not want to do telehealth visits for psychiatric issue. Reports just feeling down. Continues to eat and sleep normally. Denies SI/HI. Denies hearing voices or having visual hallucinations. Denies substance abuse. States he called the clinic and is unable to see a psychiatrist until next week. He ca me here because he was given psychiatric medications here and he would like them changed. Denies any fever, chills or other complaints at this time. PMH: Bipolar disorder PSH: Reviewed Allergies: Reviewed Social Hx: Denied Allergies: Coded Allergies: No Known Allergies (Unverified , 12/23/19) COVID-19 Screening Contact w/high risk pt: No Recent Travel to affected area: No Experienced COVID-19 symptoms?: No COVID-19 Testing performed SECURITY ASSURANCE ANALYST: No Nursing Documentation-PMH Past Medical History: No History, Except For Hx Neurological Problems: Yes - ANXIETY, DEPRESSION, BIPOLAR Review of Systems All Other Systems: negative except mentioned in HPI Physical Exam Vital Signs Date Time Temp Pulse Resp B/P (MAP) Pulse Ox O2 Delivery O2 Flow Rate FiO2 11/13/20 13:50 98.4 90 17 119/74 (89) 99 Room Air General: Awake and alert, no acute distress HEENT: NC/AT. EOMI. Resp: Normal work of breathing Skin: Intact. No abrasions, laceration or rash over the exposed skin MSK: Normal tone and bulk. Moving all extremities. No obvious deformity. Neuro: Awake and alert. Mentating appropriately. Does not appear to be responding insular stimuli. Denies SI/HI Sp02 EP Interpretation: reviewed Medical Decision Making Diagnostic Impression: Primary Impression: Depression ER Course 20-year-old male history of bipolar disorder presents for evaluation of feeling depressed. Denies SI/HI. Has been taking Zyprexa for 1 week and states it is not helped. I echoed the advice of his psychiatrist to continue taking the medication as may not have reached effective dose yet. Patient currently is not having any visual hallucinations, thoughts of suicide or hot self-harm or any other changes. He has an appointment to see a psychiatrist next week. I encouraged him to keep that appointment or to follow-up with one of the resources provided to him if he needs to see somebody sooner. Instructed to return with new or worsening symptoms. He understands and agrees with this treatment plan. Last Vital Signs Date Time Temp Pulse Resp B/P (MAP) Pulse Ox O2 Delivery O2 Flow Rate FiO2 11/13/20 13:50 98.4 90 17 119/74 (89) 99 Room Air Disposition: HOME, SELF-CARE Condition: Stable [facility]: [facility]) [facility] - Peds ER - [facility] Intake Hotline - [facility] - [facility] Patient Instructions: Persistent Depressive Disorder Additional Instructions: Continue taking current medications. Follow-up with your scheduled appointment or obtain one sooner if possible at your clinic. Follow-up with one of the resources here if you are unable to see your regular clinician. Please follow-up with your primary care doctor in the next 1 to 3 days to discuss this emergency department visit and for reevaluation. If you have any new or worsening symptoms please return to the emergency department for reevaluation. Please note that this report is being documented using [employer] technology. This can lead to erroneous entry secondary to incorrect interpretation by the dictating instrument. Thiago Walters MD Nov 13, 2020 14:11
[2020-11-13 14:40] VITALS: BP 119/74
--- NOTE | 2020-11-13 14:41 | NUR ---
ER DISCHARGE NOTE: Patient is cleared to be discharged per ERMD, pt is aox4, on room air, with stable vital signs. pt was given dc instructions, pt was able to verbalize understanding. pt is able to ambulate with steady gait. pt took all belongings.
== END 2020-11-13 14:30 | disposition home or self-care (01) ==
LOC: EMR 14:06
DX: F32.9 Major depressive disorder, single episode, unspecified (principal)
CPT/HCPCS: 99281

== ENCOUNTER 2020-11-26 23:27 | Emergency (ER) | payer OTHER ==
--- NOTE | 2020-11-26 23:34 | NUR ---
ED Nurse Note: Patient walked into triage room, stated he felt better and that he would follow up with a hospital at a different time. states that he would not like to be seen
== END 2020-11-26 23:55 | disposition left against medical advice (07) ==
LOC: EMR 23:48
DX: R45.851 Suicidal ideations (principal); Z53.21 Procedure and treatment not carried out due to patient leaving prior to being seen by health care provider